=== PATIENT | male | born 1970 | race Caucasian/White ===

== ENCOUNTER 2020-08-04 08:30 | Day surgery (SDC) | payer OTHER ==
[~2020-08-04] VITALS: Ht 185.4 cm; Wt 98.0 kg
--- NOTE | ~2020-08-04 | OR ---
[facility] [address] [place], [place] [address] [place] DATE OF OPERATION: 08/04/2020 SURGEON: Denice Rosario MD PREOPERATIVE DIAGNOSES: 1. A 7 mm right proximal ureteral calculus, status post recent right ureteroscopy performed at an outside facility. 2. Multiple small right renal calculi. POSTOPERATIVE DIAGNOSES: 1. A 7 mm right proximal ureteral calculus, status post recent right ureteroscopy performed at an outside facility. 2. Multiple small right renal calculi. NAMES OF PROCEDURES: 1. Diagnostic cystoscopy with right retrograde pyelogram. 2. Flexible nephroureteroscopy with laser lithotripsy and basket extraction of stone fragments. 3. Insertion of indwelling right ureteral stent. ANESTHESIA: General. ESTIMATED BLOOD LOSS: Minimal. COMPLICATIONS: None. SPECIMENS: Multiple fragments of right renal and ureteral calculi sent to the lab for stone analysis. DRAINS: A 6 x 28 cm double-J ureteral stent inserted into the right ureter. INDICATIONS FOR PROCEDURE: Mr. Henry is a 50-year-old gentleman with a history of nephrolithiasis who initially underwent right ureteroscopy with lithotripsy and extraction of a large right renal calculus 1-2 months ago in [place] by Dr. Riley. At that time, he was under PATIENT NAME: NORMA HENRY OPERATIVE REPORT DATE OF : 74 REPORT #: [id number] PHYSICIAN: DENICE ROSARIO MD PCP: NO PRIMARY CARE PHYSICIAN REPORT IS CONFIDENTIAL AND NOT TO BE RELEASED WITHOUT AUTHORIZATION [facility] [address] [place], [place] [address] Draft the impression that all the stone material had been completely extracted. He began to experience right-sided flank pain approximately three weeks ago and underwent a CT scan, which revealed a 7 mm proximal right ureteral calculus along with 2-3 small fragments of stones within the right kidney. After attempting a trial of passage, the patient decided to move ahead with a repeat right ureteroscopy for extraction of his remaining renal calculi on the right side. OPERATIVE FINDINGS: On cystoscopy, there was no evidence of any suspicious masses, lesions, or stones. Bilateral ureteral orifices are in their normal anatomic location and effluxing clear urine. Of note, the patient's right ureteral orifice appears mildly dilated, which is expected given his recent ureteroscopy and stent placement. Right retrograde pyelogram was performed which revealed an obstructing calculus within the proximal right ureter. Also, noted is the presence of a small kink in the distal right ureter, possibly consistent with previous right ureteral calculi. Flexible ureteroscopy was performed and the 7 mm stone was located in the proximal right ureter. The stone was fragmented using holmium laser at total power of 8 [place]. 100% of the stone was extracted from the right proximal ureter. I then advanced the flexible ureteroscope into the right kidney and was able to locate the remaining renal calculi. The remaining right renal calculi were successfully extracted from the right kidney. There was one very tiny 1 mm fragment that I was unable to successfully extract due to the diminutive size of the stone. At the end of the procedure, a 6 x 28 cm double-J ureteral stent inserted into the right ureter under direct visualization without difficulty. DESCRIPTION OF PROCEDURE: After informed consent was obtained, the patient was taken back to the operating room. He was transferred from the [facility] to the operating room table where general anesthesia was induced. He was placed in the dorsal lithotomy position and his genitalia prepped and draped in a standard sterile fashion. Using a 30-degree lens on a 22.5-Maltese introducer, a rigid cystoscope was inserted through his urethra into his bladder under direct visualization. Panendoscopic views of the bladder were then obtained. Please see above findings. Attention was turned to the right ureteral orifice where a cone-tipped catheter was used to perform a right retrograde pyelogram. Please see above findings. I initially attempted to insert a semi-rigid ureteroscope into the right ureter, however, this was not successful due to the presence of a small kink in the distal right ureter. I aborted this portion of the procedure and removed the semi-rigid ureteroscope after placing a 0.035 Sensor wire into the right collecting system. Over the wire, I passed a 13/15 ureteral access sheath into the distal ureter. Again, due to PATIENT NAME: NORMA HENRY OPERATIVE REPORT DATE OF : 74 REPORT #: [id number] PHYSICIAN: DENICE ROSARIO MD PCP: NO PRIMARY CARE PHYSICIAN REPORT IS CONFIDENTIAL AND NOT TO BE RELEASED WITHOUT AUTHORIZATION [address] [address] [place] the presence of the kink in the ureter, I was unable to pass the ureteral access sheath all the way up into the right collecting system. Despite the distal location of the sheath, I was remained successful and completely extracting the 7 mm right proximal ureteral calculus. Once it was visualized, I fragmented the stone using a holmium laser at 8 and 1 settings with a 270 micron fiber. After that stone was extracted, I advanced the ureteroscope into the right kidney. I located some small stone fragments in the lower and mid poles of the right kidney. These stones were extracted using a ZeroTip basket without difficulty. Overall 99% of the stone burden was removed from the patient's right kidney and ureter. The ureteroscope was then removed and a 0.035 Sensor wire was inserted into the right ureter via the ureteral access sheath. The ureteral access sheath was then removed fully intact. Over the wire, I passed a 6 x 28 cm double-J ureteral stent into the right collecting system under fluoroscopic guidance and without difficulty. Once the wire was pulled, an adequate proximal coil was seen within the right renal pelvis. The patient's bladder was then drained and the cystoscope was removed. Of note, the indwelling ureteral stent was placed with a string attached to it. The string was secured to the base of the penis at the end of the procedure. The procedure was then terminated. The patient tolerated the procedure well without any complication. He will now be transferred to the postanesthesia care unit in stable condition. DISPOSITION: I discussed the details of today's procedure with the patient's father and answered all of his questions. The patient will be discharged to home later today once he awakes from general anesthesia. He was sent home with Percocet 5/325 one tablet p.o. q.6 hours p.r.n. pain, dispense #20, along with Cipro 500 mg p.o. b.i.d. for a total of 7 days. He was instructed to remove his right indwelling ureteral stent using the string attached on August 09, 2020. He will be scheduled to return to clinic in 6-8 weeks for his first postoperative visit and to discuss the results of his stone analysis. MD ADRIENNE Calle/ELVER /[id number] Copies: PATIENT NAME: NORMA HENRY OPERATIVE REPORT DATE OF : 74 REPORT #: [id number] PHYSICIAN: DENICE ROSARIO MD PCP: NO PRIMARY CARE PHYSICIAN REPORT IS CONFIDENTIAL AND NOT TO BE RELEASED WITHOUT AUTHORIZATION [address] [address] [facility] PATIENT NAME: NORMA HENRY OPERATIVE REPORT DATE OF : 74 REPORT #: [id number] PHYSICIAN: DENICE ROSARIO MD PCP: NO PRIMARY CARE PHYSICIAN REPORT IS CONFIDENTIAL AND NOT TO BE RELEASED WITHOUT AUTHORIZATION
[~2020-08-04 08:30] MED LIST: LISINOPRIL5 MG PO
--- NOTE | 2020-08-04 14:18 | NUR ---
08/04/20 Ray8 Anabelle Landeros- PT ARRIVES TO PACU WITH AN OPA IN PLACE. PT SNORING. ATTEMPTED TO DO A JAW THRUST. PT RESPONDS TO THIS AND GRIMACES. DOES NOT GAG ON THE OPA THOUGH, DOES NOT FOLLOW COMMANDS, OR OPEN EYES. OPA LEFT IN PLACE AND SNORING CLEARS. RESP EVEN AND UNLABORED. OXYGEN SAT HIGH 90'S TO 100% ON 6L VIA MASK.
--- NOTE | 2020-08-04 15:00 | NUR ---
PATIENT BACK TO DAYSURGERY FROM PACU. PATIENT COMPLAINING OF PAIN 5/10 ON PAIN SCALE. PATIENT TOELRATING SNACKS AND WATER. ADMINSTERED PAIN MEDICAITON PER MAR. NO DRAINAGE FROM URETHRA, CLEAN AND DRY.
--- NOTE | 2020-08-04 15:30 | NUR ---
PATIENT UP TO BATHROOM, STEADY ON FEET. RATES PAIN 3/10 ON PAIN SCALE. REPORTED BURNING SENSATION WITH URINATION. SMALL AMOUNT OF DRAINAGE FROM URETHRA. PATIENT BACK TO ROOM. PROVIDED WARM BLANKETS.
--- NOTE | 2020-08-04 15:50 | NUR ---
PATIENT CALLS NURSE TO ROOM, REPORTS FEELING READY TO DISCHARGE HOME. DC IV. NO NEW DRAINAGE. PATIENT DRESSED SELF. PROVIDED PATIENT WITH DISCHARGE EDUCATION, FATHER AT BEDSIDE LISTENING TO INSTRUCTION. SCRIPT WAS PROVIDED TO PATIENT FATHER AND FILLED AT LOCAL PHARMACY. PROVIDED PATIENT WITH WHEELCHAIR RIDE TO FRONT. PATIENT TRANSFERED INTO VEHICLE, TOLERATING ACTIVITY WELL.
== END 2020-08-04 15:50 | disposition home or self-care (01) ==
LOC: OPS 08:30 → DS 08:30 → OPS 09:00
PROVIDERS: ATTEND Urology
PROC: 0TC68ZZ Extirpation of Matter from Right Ureter, Via Natural or Artificial Opening Endoscopic (ICD-10-PCS; 2020-08-04)
PROC: BT1DZZZ Fluoroscopy of Right Kidney, Ureter and Bladder (ICD-10-PCS; 2020-08-04)
PROC: 0T768DZ Dilation of Right Ureter with Intraluminal Device, Via Natural or Artificial Opening Endoscopic (ICD-10-PCS; principal; 2020-08-04 10:45)
DX: N20.2 Calculus of kidney with calculus of ureter (principal); I10 Essential (primary) hypertension; N52.01 Erectile dysfunction due to arterial insufficiency; N48.6 Induration penis plastica; Z79.899 Other long term (current) drug therapy; Z87.891 Personal history of nicotine dependence
CPT/HCPCS: 00918; 74450; 82365; C1769; C2617; J0690; J1100; J1885; J2001; J2405; J2704; J3010; J7121; Q9958